=== PATIENT | male | born 1970 | race Caucasian/White ===

== ENCOUNTER 2016-05-19 04:06 | Emergency (ER) | payer SELFPAY ==
[2016-05-19 04:22] VITALS: BP 131/80
[2016-05-19] MEDS ORDERED: OXYCODONE-ACETAMINOPHEN 5-325 MG TABLET PO ONE (04:54)
--- NOTE | 2016-05-19 05:21 | ER Document Report ---
ED General - General Chief Complaint: Shoulder Pain Stated Complaint: FALL/SHOULDER PAIN Mode of Arrival: Ambulatory Information source: Patient Notes: Patient presents to the emergency department with abrasions post fall yesterday around noon. Patient reports he was climbing up steps and he missed the top step and fell off and landed on a stump. He reports he hit his right shoulder and right side of his head. He reports he was knocked out. When he came too he felt dizzy. He reports pain to right shoulder. Abrasion noted to right shoulder, c/o pain with movement to right elbow and shoulder. Reports tetanus is up to date. Pt drove here with his mother. Reports she will able to drive home when it is light. Denies f/n/v/d. TRAVEL OUTSIDE OF THE [place] IN LAST 30 DAYS: No - HPI Onset: Yesterday Onset/Duration: Persistent Quality of pain: Achy, Sharp Severity: Severe Pain Level: 5 Associated symptoms: None Exacerbated by: Movement Relieved by: Denies Similar symptoms previously: No Recently seen / treated by doctor: No - Related Data Allergies/Adverse Reactions: milk [Milk] Allergy (Verified 05/19/16 05:19) Penicillins Allergy (Verified 05/19/16 05:19) Past Medical History - General Information source: Patient - Social History Smoking Status: Current Every Day Smoker Cigarette use (# per day): Yes Frequency of alcohol use: None Drug Abuse: None 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 Denies: Hx Peritoneal Dialysis GI Medical History: Reports: Hx Gastroesophageal Reflux Disease Musculoskeltal Medical History: Reports Hx Musculoskeletal Trauma - Left hand tendon injury and repair Past Surgical History: Reports: Hx Orthopedic Surgery - Left hand - Immunizations Immunizations up to date: Yes Hx Diphtheria, Pertussis, Tetanus Vaccination: Yes Review of Systems - Review of Systems Notes: Review HPI for review of systems., All other systems negative Physical Exam - Vital signs Vitals: Temp Pulse Resp BP Pulse Ox 97.4 F 88 18 131/80 H 99 05/19/16 04:16 05/19/16 04:16 05/19/16 04:16 05/19/16 04:16 05/19/16 04:16 - Notes Notes: PHYSICAL EXAMINATION: GENERAL: Looks tired, appears in pain HEAD: Atraumatic, normocephalic. EYES: Pupils equal round and reactive to light, extraocular movements intact, sclera anicteric, conjunctiva are normal. ENT: nares patent, Moist mucous membranes. clear voice, opens mouth wide NECK: Normal range of motion, supple without lymphadenopathy, +erythema right side of neck, no swelling, turns head to left/right without c/o pain LUNGS: CTAB and equal. No wheezes rales or rhonchi. nontender HEART: Regular rate and rhythm without murmurs ABDOMEN: Soft, no tenderness. No guarding, no rebound BACK: Upper right trapezius area ttp EXTREMITIES: no pitting edema. No cyanosis. no obvious deformity. c/o pain with movement to right elbow, touch to right shoulder, abrasion noted to upper anterior shoulder NEUROLOGICAL: Cranial nerves grossly intact. Normal sensory/motor exams. PSYCH: Normal mood, normal affect. SKIN: Warm, Dry, normal turgor, irregular shaped abrasion right shoulder 4x3 cm , small lac to distal tip right earlobe lobule. scratch right cheek-diagonal Course - Re-evaluation Re-evalutation: 05/19/16 Patient instructed on all negative x-rays, negative CT. Patient was also instructed on importance of monitoring his abrasion keep it clean and apply bacitracin. Monitor for signs of infection. He was prescribed Percocet for his pain. His mother is driving him home. He verbalized understanding to all instructions. - Vital Signs Vital signs: Temp Pulse Resp BP Pulse Ox 97.4 F 88 18 131/80 H 99 05/19/16 04:16 05/19/16 04:16 05/19/16 04:16 05/19/16 04:16 05/19/16 04:16 - Diagnostic Test Radiology reviewed: Image reviewed, Reports reviewed - Diagnostic report text EXAM DESCRIPTION: ELBOW RIGHT OVER 2 VIEWS COMPLETED DATE/TIME: 05/19/2016 5: 16 am REASON FOR STUDY: 32-right elbow pain, fall change in loc COMPARISON: None. NUMBER OF VIEWS: Four views. TECHNIQUE: AP, lateral, and both oblique radiographic images acquired of the right elbow. LIMITATIONS: None. FINDINGS : MINERALIZATION: Normal. BONES: No acute fracture or dislocation. A small well corticated lucent area is identified in the proximal radius. JOINT: No effusion. SOFT TISSUES: No soft tissue swelling. No foreign body. OTHER: No other significant finding. TECHNICAL DOCUMENTATION: JOB ID: [id number] [employer]- All Rights Reserved RAD/ ELBOW RIGHT OVER 2 VIEWS IMPRESSION: NO RADIOGRAPHIC EVIDENCE OF ACUTE INJURY. RAD/SHOULDER RIGHT 2 OR MORE VIEWS IMPRESSION: NEGATIVE STUDY OF THE RIGHT SHOULDER. NO RADIOGRAPHIC EVIDENCE OF ACUTE INJURY. CT/CT HEAD WITHOUT IMPRESSION: NORMAL BRAIN CT WITHOUT CONTRAST. Procedures - Immobilization Right Shoulder Pre-Proc Neuro Vasc Exam: Normal Immobilizer type: Sling Performed by: RN Post-Proc Neuro Vasc Exam: Unchanged from pre-exam Discharge - Discharge Clinical Impression: Elbow pain, right, Abrasion, Elevated blood pressure reading Right shoulder pain Qualifiers: Chronicity: acute Qualified Code(s): M25.511 - Pain in right shoulder Head injury Qualifiers: Encounter type: initial encounter Qualified Code(s): S09.90XA - Unspecified injury of head, initial encounter Condition: Stable Disposition: HOME, SELF-CARE Instructions: Abrasions ([facility]), Oral Narcotic Medication ([facility]), Sling as Treatment ([facility]), Antibiotic Ointment Protection ([facility]), Head Injury Precautions ( [facility]) Additional Instructions: *You have been treated for an abrasion and right shoulder/elbow pain, head injury *Take medication as prescribed for acute pain *Monitor the abrasion for signs of infection such as increasing pain, redness , swelling, warmth *Keep the area clean, apply bacitracin twice daily to abrasion *Follow up with a primary care provider within one week for recheck *Return to ED for signs of infection, worsening condition, changes, needs Monitor your blood pressure. Your blood pressure was elevated today. This may be because you were anxious, in pain or because you need medication. It is important to follow up with your primary care provider for full evaluation. Prescriptions: Oxycodone HCl/Acetaminophen [Percocet 5-325 mg Tablet] 1 - 2 tab PO ASDIR PRN # 15 tablet PRN Reason: Forms: Elevated Blood Pressure, Return to Work
== END 2016-05-19 06:07 | disposition home or self-care (01) ==
LOC: ER 04:06
DX: S50.311A Abrasion of right elbow, initial encounter (principal); M25.511 Pain in right shoulder; R03.0 Elevated blood-pressure reading, without diagnosis of hypertension; S09.90XA Unspecified injury of head, initial encounter; W10.9XXA Fall (on) (from) unspecified stairs and steps, initial encounter; F17.210 Nicotine dependence, cigarettes, uncomplicated; Z88.0 Allergy status to penicillin; Z91.011 Allergy to milk products
CPT/HCPCS: 70450; 99284

== ENCOUNTER 2016-05-24 04:56 | Emergency (ER) | payer SELFPAY ==
[2016-05-24 05:03] VITALS: BP 153/86
[2016-05-24] MEDS ORDERED: HYDROCODONE/ACETAMINOPHEN 5-325 MG TABLET PO ONE (05:48)
--- NOTE | 2016-05-24 05:51 | ER Document Report ---
ED Extremity Problem, Upper - General Chief Complaint: Shoulder Injury Stated Complaint: SHOULDER PAIN Mode of Arrival: Ambulatory Information source: Patient TRAVEL OUTSIDE OF THE [place] IN LAST 30 DAYS: No - HPI Notes: Patient denies complaints of right shoulder pain. The patient states that he tripped approximately a week ago and fell and hit his right shoulder on a route. He was seen here and had negative x-rays and CT at that time. The patient states that the pain in his right shoulder has actually worsened over the last few days. He does not have insurance, therefore he has not been able to follow-up with or so. He has limited range of motion of the arm secondary to pain. He denies any numbness tingling or weakness. He denies fevers. He denies any chest pain or shortness of breath. He is not on blood thinners. He denies any nausea, vomiting, diarrhea. Pain is worse with any movement, and better with rest. He has no other complaints at this moment. - Related Data Allergies/Adverse Reactions: milk [Milk] Allergy (Verified 05/24/16 05:48) Penicillins Allergy (Verified 05/24/16 05:48) Past Medical History - Social History Smoking Status: Unknown if Ever Smoked Family History: Reviewed & Not Pertinent, CVA, Hyperlipidemia, Hypertension Patient has suicidal ideation: No Patient has homicidal ideation: No Renal/ Medical History: Reports: Hx Benign Prostatic Hyperplasia - reports prostate problems but never went back for treatment. Denies: Hx Peritoneal Dialysis GI Medical History: Reports: Hx Gastroesophageal Reflux Disease Musculoskeltal Medical History: Reports Hx Musculoskeletal Trauma - Left hand tendon injury and repair Past Surgical History: Reports: Hx Orthopedic Surgery - Left hand - Immunizations Immunizations up to date: Yes Hx Diphtheria, Pertussis, Tetanus Vaccination: Yes Review of Systems - Review of Systems -: Yes All other systems reviewed and negative Physical Exam - Vital signs Vitals: Temp Pulse Resp BP Pulse Ox 97.5 F 89 20 153/86 H 99 05/24/16 04:59 05/24/16 04:59 05/24/16 04:59 05/24/16 04:59 05/24/16 04:59 - Notes Notes: GENERAL: alert, cooperative, nontoxic, no distress. HEAD: normocephalic, atraumatic EYES: conjunctiva pink without discharge, no external redness or swelling. EARS: no external swelling, no external redness NOSE: atraumatic, no external swelling MOUTH/THROAT: mucous membranes moist and pink, posterior pharynx without erythema, swelling, exudate. No trismus or drooling. NECK: soft, supple, full range of motion, no meningismus. CHEST: no distress, lungs clear and equal throughout. No wheezing, rales, rhonchi. CARDIAC: regular rate and rhythm, no murmur, normal capillary refill, normal pulses. No peripheral edema noted. ABDOMEN: Soft, nontender. BACK: full range of motion, no CVA tenderness. EXTREMITIES: Swelling noted to the right shoulder with tenderness to palpation of the right anterior posterior shoulder. No obvious deformity noted. Patient has significant limited range of motion of the right shoulder. Normal pulse and sensation distally. Patient is noted to have a healing deep abrasion to the right trapezius muscle, there is no surrounding erythema or drainage. Patient has old ecchymosis to the right shoulder and upper chest. NEURO: alert and oriented 3, no focal deficits, full range of motion of all extremities. PYSCH: appropriate mood, affect. Patient is cooperative. SKIN: pink, warm, dry, no rash. Course - Re-evaluation Re-evalutation: 05/24/16 06:35 Patient nontoxic. Stable vitals. Patient is known to have swelling and limited range of motion of the right shoulder. Repeat x-rays today show no acute bony injuries. Patient likely has a rotator cuff injury. This point patient will be instructed to follow-up with or so or primary care order to obtain more definitive imaging to rule out soft tissue injury will not be apparent on plain x-rays. I'll write a patient a prescription for pain medication, he was urged to follow-up for further evaluation. Patient verbalizes understanding of this. The patient is noted to have elevated blood pressure during today's emergency department visit. The patient was informed of this finding. The patient was instructed that this may be related to pre-hypertension and requires further evaluation with a primary care provider. The patient has no hypertensive symptoms at this time. The patient's emergency department workup and current diagnosis were explained to the patient and or family. Follow-up instructions were provided. Medications if prescribed were discussed. Instructions for when to return to the emergency department including specific worrisome symptoms were discussed with the patient and/or family. - Vital Signs Vital signs: Temp Pulse Resp BP Pulse Ox 97.5 F 89 20 153/86 H 99 05/24/16 04:59 05/24/16 04:59 05/24/16 04:59 05/24/16 04:59 05/24/16 04:59 - Diagnostic Test Radiology reviewed: Image reviewed, Reports reviewed - X-rays of the right shoulder and chest negative for acute findings. Discharge - Discharge Clinical Impression: Injury of right rotator cuff Qualifiers: Encounter type: subsequent encounter Qualified Code(s): S46.001D - Unspecified injury of muscle(s) and tendon(s) of the rotator cuff of right shoulder, subsequent encounter Condition: Stable Disposition: HOME, SELF-CARE Instructions: Rotator Cuff Injury ([facility]) Additional Instructions: Take medications as prescribed. Apply ice to sore area. Follow-up with primary care or orthopedic for further evaluation of his shoulder. Follow-up sooner for increased pain, fever, swelling, redness, any further concerns. Your blood pressure was elevated during today's visit. Have this rechecked with your doctor. The medication you were prescribed today may cause drowsiness. Do not drive or operate heavy machinery while taking this medication. Prescriptions: Hydrocodone/Acetaminophen [Fielding 5-325 mg Tablet] 1 tab PO Q4 PRN #12 tablet PRN Reason: Forms: Elevated Blood Pressure Referrals: DEVANTE YIN DO [ACTIVE STAFF] - Follow up as needed
== END 2016-05-24 06:41 | disposition home or self-care (01) ==
LOC: ER 04:56
DX: S46.001D Unspecified injury of muscle(s) and tendon(s) of the rotator cuff of right shoulder, subsequent encounter (principal); W19.XXXD Unspecified fall, subsequent encounter
CPT/HCPCS: 71020; 99283

== ENCOUNTER 2016-10-01 02:06 | Emergency (ER) | payer SELFPAY ==
[2016-10-01] MEDS ORDERED: HYDROCODONE/ACETAMINOPHEN 10-325 MG TABLET PO ONE (03:15)
[2016-10-01] MEDS ORDERED: KETOROLAC TROMETHAMINE INJ/PF 30 MG/1 ML SDV IM ONE (03:15)
[2016-10-01] MEDS ORDERED: ONDANSETRON 4 MG TAB.RAPDIS PO ONE (03:16)
--- NOTE | 2016-10-01 03:30 | ER Document Report ---
ED General Pain - General Chief Complaint: Low Back Pain Stated Complaint: RIGHT SHOULDER PAIN/LOWER BACK PAIN Time Seen by Provider: 10/01/16 03:12 TRAVEL OUTSIDE OF THE [place] IN LAST 30 DAYS: No - HPI Notes: 46-year-old male with history of chronic shoulder and variety of pains presents with persisting pain in the right shoulder. His chief complaint is actually left lower back pain with radiation down his leg. He has had that for approximately 3 days and it seems to be not improving. 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 Denies hematuria or dysuria. Denies distal numbness weakness or saddle anesthesia. No incontinence or constipation/retention. He cannot find a comfortable position. He does deny any abdominal pain. It is very tender to touch and he does not like to lie on it secondary to the pain as well. He has had some vomiting but no hematemesis. No diarrhea. No fever. Due to lack of insurance he has not been able to get follow-up. He stated he did wait for 8 hours at a clinic but was never seen. Occasionally is using some ibuprofen but really not having much improvement with that. - Related Data Allergies/Adverse Reactions: milk [Milk] Allergy (Verified 10/01/16 02:15) Penicillins Allergy (Verified 10/01/16 02:15) Past Medical History - Social History Smoking Status: Unknown if Ever Smoked Family History: Reviewed & Not Pertinent, CVA, Hyperlipidemia, Hypertension Renal/ Medical History: Reports: Hx Benign Prostatic Hyperplasia - reports prostate problems but never went back for treatment. Denies: Hx Peritoneal Dialysis GI Medical History: Reports: Hx Gastroesophageal Reflux Disease Musculoskeltal Medical History: Reports Hx Musculoskeletal Trauma - Left hand tendon injury and repair Past Surgical History: Reports: Hx Orthopedic Surgery - Left hand - Immunizations Immunizations up to date: Yes Hx Diphtheria, Pertussis, Tetanus Vaccination: Yes Review of Systems - Review of Systems -: Yes All other systems reviewed and negative Physical Exam - Vital signs Vitals: Temp Pulse Resp BP Pulse Ox 97.3 F 92 18 119/73 97 10/01/16 02:16 10/01/16 02:16 10/01/16 02:16 10/01/16 02:16 10/01/16 02:16 Interpretation: Normal - Notes Notes: GENERAL: VS as per nursing doc. thin male, slightly agitated and standing in the corner with increased psychomotor agitation. Gait is normal. HEAD: Atraumatic, normocephalic. EYES: Sclera anicteric, no conjunctival injection or discharge. ENT: Moist mucous membranes. NECK:Supple without lymphadenopathy. LUNGS: Coarse breath sounds bilaterally. HEART: Regular rate and rhythm without murmurs. ABDOMEN: Soft, non-tender, normoactive bowel sounds. No guarding, no rebound. No masses appreciated. No Pinole sign. BACK: There is tenderness at the right SI joint superiorly with some withdrawal from palpation. No gross deformity is noted. No midline lumbar tenderness to palpation.. EXTREMITIES: Severe decreased range of motion particularly with abduction of the right shoulder. There is generalized tenderness of the right shoulder as well. Neurovascularly intact distally. NEUROLOGICAL:Normal speech. Normal sensory and motor exams. No gross cerebellar abnormalities. PSYCH: Somewhat odd affect for situation. Increased psychomotor agitation. No evidence of hallucinations or delusions. SKIN: Warm, dry, normal turgor, no evidence of shingles. Course - Re-evaluation Re-evalutation: 10/01/16 03:30 Patient seemed to have a lot of motion to have musculoskeletal pain but clearly had reproducibility. Discussed and considered ureteral colic as well. Shubham change focus to his right shoulder which is a chronic pain without new injury. I instructed him on follow-up as he will definitely need follow-up for his chronic issues. He had been to a pain clinic but decided he did not like that after the injections and treatment would wear off after about 3 weeks. We will try to get him some relief with medication in the meanwhile discussing with him the risks of addiction. We will treat him symptomatically and again asked him to [facility] or [facility]ist in follow-up. He voices understanding of the discharge instructions, plan and return to ER warnings. - Vital Signs Vital signs: Temp Pulse Resp BP Pulse Ox 97.3 F 92 18 119/73 97 10/01/16 02:16 10/01/16 02:16 10/01/16 02:16 10/01/16 02:16 10/01/16 02:16 Discharge - Discharge Clinical Impression: Shoulder joint painful on movement Condition: Good Disposition: HOME, SELF-CARE Instructions: Oral Narcotic Medication ([facility]), Low Back Pain ([facility]) Additional Instructions: Ensure you get follow-up as discussed as you have a chronic condition which appears to exacerbate from time to time and will need further evaluation and treatment. Prescriptions: Tramadol HCl [Ultram] 50 mg PO Q6HP PRN #12 tablet PRN Reason: For Pain Promethazine HCl [Phenergan 25 mg Tablet] 1 tab PO Q6H PRN #15 tablet PRN Reason: Referrals: [facility] [Provider Group] - Follow up in 3-5 days
[2016-10-01 04:08] VITALS: BP 115/74
== END 2016-10-01 04:06 | disposition home or self-care (01) ==
LOC: ER 02:06
DX: G89.29 Other chronic pain (principal); M25.511 Pain in right shoulder; M54.5 Low back pain; R11.10 Vomiting, unspecified; R09.89 Other specified symptoms and signs involving the circulatory and respiratory systems; R45.1 Restlessness and agitation; Z91.011 Allergy to milk products; Z88.0 Allergy status to penicillin
CPT/HCPCS: 99283; 96372; S0119; J1885

== ENCOUNTER 2017-06-22 21:18 | Emergency (ER) | payer SELFPAY ==
[2017-06-22 22:12] VITALS: BP 141/97
[2017-06-23] MEDS ORDERED: ONDANSETRON 4 MG TAB.RAPDIS PO ONE (00:45)
[2017-06-23] MEDS ORDERED: KETOROLAC TROMETHAMINE INJ/PF 30 MG/1 ML SDV IM ONE (00:45)
--- NOTE | 2017-06-23 00:50 | ER Document Report ---
ED Neck/Back Problem - General Chief Complaint: Leg Pain Stated Complaint: LT SIDE PAIN Time Seen by Provider: 06/23/17 00:31 Mode of Arrival: Ambulatory Information source: Patient TRAVEL OUTSIDE OF THE [place] IN LAST 30 DAYS: No - HPI Patient complains to provider of: Pain Notes: The patient is here with complaints of left shoulder and left hip pain. Patient states that this is all chronic. Is been dealing with this for years. 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 States over the last few days the pain is gotten worse. He states that occasionally the pain gets so bad and makes him vomit. He denies any abdominal pain. He denies any new falls, trauma, injury. He denies any bowel or bladder dysfunction. He denies any numbness, tingling, weakness. No chest pain or shortness of breath. No abdominal pain. No dysuria or hematuria. No rash. No headache or blurred vision. States that this is very common for him and he has had this same pain several times in the past. Pain is worse with movement, better with rest. No other complaints at this time. - Related Data Allergies/Adverse Reactions: milk [Milk] Allergy (Verified 10/01/16 02:15) Penicillins Allergy (Verified 10/01/16 02:15) Past Medical History - Social History Smoking Status: Current Every Day Smoker Family History: Reviewed & Not Pertinent, CVA, Hyperlipidemia, Hypertension Renal/ Medical History: Reports: Hx Benign Prostatic Hyperplasia - reports prostate problems but never went back for treatment. Denies: Hx Peritoneal Dialysis GI Medical History: Reports: Hx Gastroesophageal Reflux Disease Musculoskeltal Medical History: Reports Hx Musculoskeletal Trauma - Left hand tendon injury and repair Past Surgical History: Reports: Hx Orthopedic Surgery - Left hand - Immunizations Immunizations up to date: Yes Hx Diphtheria, Pertussis, Tetanus Vaccination: Yes Review of Systems - Review of Systems -: Yes All other systems reviewed and negative Physical Exam - Vital signs Vitals: Pulse BP Pulse Ox 92 141/97 H 98 06/22/17 22:11 06/22/17 22:11 06/22/17 22:11 - Notes Notes: GENERAL: alert, cooperative, nontoxic, no distress. HEAD: normocephalic, atraumatic EYES: conjunctiva pink without discharge, no external redness or swelling. EARS: no external swelling, no external redness NOSE: atraumatic, no external swelling MOUTH/THROAT: mucous membranes moist and pink, posterior pharynx without erythema, swelling, exudate. No trismus or drooling. NECK: soft, supple, full range of motion, no meningismus. CHEST: no distress, lungs clear and equal throughout. No wheezing, rales, rhonchi. CARDIAC: regular rate and rhythm, no murmur, normal capillary refill, normal pulses. No peripheral edema noted. ABDOMEN: soft, nontender, no pusatile mass. BACK: No CVA tenderness. Tenderness to left sacroiliac joint. Slightly limited range of motion of low back secondary to pain. EXTREMITIES: Slightly decreased range of motion of the left shoulder secondary to pain. Normal pulse and sensation. Compartments are soft. No redness or swelling. No redness, no swelling. NEURO: alert and oriented A&O x 3, no focal deficits, full range of motion of all extremities. 5 out of 5 flexion and extension of the lower extremities bilaterally. Patellar and Achilles deep tendon reflexes are +2 bilaterally. Normal sensation with no saddle anesthesia. Patient can dorsiflex the great toes bilaterally. PYSCH: appropriate mood, affect. Patient is cooperative. SKIN: pink, warm, dry, no rash. Course - Re-evaluation Re-evalutation: 06/23/17 00:47 Patient is nontoxic appearing with stable vitals. Is here with complaints of left shoulder and hip pain. This is chronic. He has had no recent falls or injuries. No bowel or bladder dysfunction. No blood thinners. No sign or risk of cauda equina, epidural abscess/bleed, discitis, osteomyelitis, pyelonephritis. 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 This is all chronic for him he states that that over the last 3 days his pain is just gotten worse. He has no signs of infection. He is neurovascularly intact. This point the patient will be given a shot of Toradol and Zofran in the emergency department will be discharged home with Florin. He will be given referrals to orthopedics as well as the [facility] to get established for treatment of his chronic pain. Follow-up sooner if he develops worsening pain, fever, numbness, tingling, weakness, bowel or bladder dysfunction, or for any further concerns. The patient is noted to have elevated blood pressure during today's emergency department visit. The patient was informed of this finding. The patient was instructed that this may be related to pre-hypertension and requires further evaluation with a primary care provider. The patient has no hypertensive symptoms at this time. The patient's emergency department workup and current diagnosis were explained to the patient and or family. Follow-up instructions were provided. Medications if prescribed were discussed. Instructions for when to return to the emergency department including specific worrisome symptoms were discussed with the patient and/or family. - Vital Signs Vital signs: Temp Pulse Resp BP Pulse Ox 92 141/97 H 98 06/22/17 22:11 06/22/17 22:11 06/22/17 22:11 Discharge - Discharge Clinical Impression: Chronic pain Qualifiers: Chronic pain type: chronic pain syndrome Qualified Code(s): G89.4 - Chronic pain syndrome Condition: Stable Disposition: HOME, SELF-CARE Instructions: Chronic Pain Control ([facility]) Additional Instructions: Take medication as prescribed. Establish with primary care orthopedics for help with your chronic pain. Follow-up if not better in 1 week, sooner for worsening pain, fever, numbness, tingling, weakness, bowel or bladder dysfunction, chest pain, shortness of breath, persistent vomiting, abdominal pain, or for any further concerns. Your blood pressure was elevated during today's visit. Have this rechecked with your doctor. Forms: Elevated Blood Pressure, Smoking Cessation Education Referrals: AMANDA DUKE MD [Primary Care Provider] - Follow up as needed [facility] [Provider Group] - Follow up as needed ISMA HENRY MD [ACTIVE STAFF] - Follow up as needed
== END 2017-06-23 01:16 | disposition home or self-care (01) ==
LOC: ER 21:18
DX: G89.4 Chronic pain syndrome (principal); M25.512 Pain in left shoulder; M25.552 Pain in left hip; R03.0 Elevated blood-pressure reading, without diagnosis of hypertension; Z91.011 Allergy to milk products; Z88.0 Allergy status to penicillin; F17.200 Nicotine dependence, unspecified, uncomplicated
CPT/HCPCS: 99283; 96372; S0119; J1885